=== PATIENT | male | born 1960 | race Hispanic/Latino ===

== ENCOUNTER 2021-11-02 06:39 | Day surgery (SDC) | payer BC ==
[~2021-11-02] VITALS: Ht 172.7 cm; Wt 90.7 kg
[2021-11-02] VITALS (16 sets, daily range): BP systolic 120–174; BP diastolic 76–102
[~2021-11-02 06:39] MED LIST: IBUP-2077 PO; LOSA50TA64 PO; METF-444 PO; SIMV-43 PO; ZINC220T4 PO
[2021-11-02] MEDS: CEFAZOLIN SODIUM 1 GM VIAL IVP SCH ×2 (06:45→08:30)
[2021-11-02] MEDS ORDERED: 0.9%NACL 1000ML 1,000 ML IV ONE (07:07)
[2021-11-02] MEDS ORDERED: PROPOFOL 10 MG/ML 20ML VIAL IV ONE (07:28)
[2021-11-02] MEDS ORDERED: MIDAZOLAM HCL 1 MG/ML 2ML VIAL ONE (07:28)
[2021-11-02] MEDS ORDERED: FENTANYL CITRATE PF 50 MCG/1 ML 5ML AMP IV ONE (07:28)
[2021-11-02] MEDS ORDERED: KETAMINE 50MG/ML SYRINGE 50 MG/ML DISP.SYRIN IV ONE (07:38)
[2021-11-02] MEDS ORDERED: ROCURONIUM 10MG/1ML SYR 10 MG/ML ML ONE (07:38)
[2021-11-02] MEDS ORDERED: ONDANSETRON 4MG INJ ONE (07:43)
[2021-11-02] MEDS ORDERED: NEOSTIGMINE 5MG/5ML SYR IV ONE (09:16)
[2021-11-02] MEDS ORDERED: GLYCOPYRROLATE 1 MG/5 ML SYRINGE ONE (09:16)
[2021-11-02] MEDS ORDERED: CEPH500B PO (09:29)
[2021-11-02] MEDS ORDERED: ACET1TAB25 PO (09:29)
[2021-11-02] MEDS ORDERED: IBUP-2077 PO (09:29)
[2021-11-02] MEDS ORDERED: MEPERIDINE-PF 25 MG/ML SYG ONE ×2 (09:42→09:53)
== END 2021-11-02 11:15 | disposition home or self-care (01) ==
LOC: DAH 06:39
PROVIDERS: ATTEND Orthopaedic Surgery
DX: S83.241A Other tear of medial meniscus, current injury, right knee, initial encounter (principal); M94.261 Chondromalacia, right knee; I10 Essential (primary) hypertension; E11.9 Type 2 diabetes mellitus without complications; K21.9 Gastro-esophageal reflux disease without esophagitis; E66.01 Morbid (severe) obesity due to excess calories; E78.00 Pure hypercholesterolemia, unspecified; Z79.84 Long term (current) use of oral hypoglycemic drugs; Z79.899 Other long term (current) drug therapy; M65.261 Calcific tendinitis, right lower leg; M17.11 Unilateral primary osteoarthritis, right knee; G89.29 Other chronic pain; Z98.890 Other specified postprocedural states; X58.XXXA Exposure to other specified factors, initial encounter; Y93.89 Activity, other specified; Y92.89 Other specified places as the place of occurrence of the external cause; Y99.8 Other external cause status
CPT/HCPCS: 29881; 82948 ×2; 87635; A4215; A4216; A4221; A4222; A4223 ×2; A4649; A4663; A4930 ×2; A5120; A6223; C9803; J0690; J2175 ×2; J2250; J2405; J2704; J2710; J3010; J3490 ×2; J7030 ×2